=== PATIENT | female | born 1985 | race Caucasian/White ===

== ENCOUNTER 2019-03-24 14:19 | Outpatient (REF) | payer MEDICAID, SELFPAY ==
--- NOTE | 2019-03-24 13:30 | PAPFT_PTH ---
PATIENT: Randi Britt LOC: [facility]#:[id number] AGE/SX: 33/F ROOM: RE03/24/[address]: Cammie Sandoval : 1985 BED: DIS: 03/24/2019 SPEC #: [id number] RECD: 03/25/19 12:58 STATUS: TARI REQ #: [id number] RAY: 03/24/19 13:[address]: Cammie Sandoval DEPT: [facility] Cytology RECD BY: Zonia Thompson ENTERED: 03/25/19 12:58 SP TYPE: PAPFT OTHR DR: Maribell Bonilla Tissues: 1 - CX/ENDOCX FOR PAP SMEARS Procedures: PAP THIN PREP/[facility] Screening HPV DNA PROBE Comments: [id number]
== END 2019-03-24 14:39 ==
LOC: NCHCN 14:19
PROVIDERS: PCP Family Medicine; Visit Provider Family Medicine
DX: Z12.4 Encounter for screening for malignant neoplasm of cervix (principal); Z11.51 Encounter for screening for human papillomavirus (HPV)
CPT/HCPCS: 88142; 87624

== ENCOUNTER 2020-04-20 22:49 | Outpatient (REF) | payer MEDICAID, SELFPAY | END 2020-04-20 23:09 | LOC: NCHCN 22:49 | PROVIDERS: PCP Family Medicine; Visit Provider Family Medicine | DX: N39.0 Urinary tract infection, site not specified (principal) | CPT/HCPCS: 87077; 87086 ==

== ENCOUNTER 2022-05-22 12:59 | Outpatient (REF) | payer MEDICAID, SELFPAY | END 2022-05-22 13:00 | disposition home or self-care (01) | LOC: NCHCN 12:59 | PROVIDERS: PCP Family Medicine; Visit Provider Family Medicine | DX: R30.0 Dysuria (principal) | CPT/HCPCS: 87086 ==

== ENCOUNTER 2023-01-31 18:36 | Outpatient (REF) | payer MEDICAID, SELFPAY ==
[2023-02-02 14:57] LABS: Chlamydia Result Negative (Negative); GC Result Negative (Negative)
== END 2023-01-31 18:37 | disposition home or self-care (01) ==
LOC: NCHCN 18:36
PROVIDERS: PCP Family Medicine; Visit Provider Internal Medicine
DX: R39.89 Other symptoms and signs involving the genitourinary system (principal); R82.79 Other abnormal findings on microbiological examination of urine; Z11.3 Encounter for screening for infections with a predominantly sexual mode of transmission
CPT/HCPCS: 87077; 87491; 87591; 87086; 87186

== ENCOUNTER 2024-07-16 16:53 | Outpatient (REF) | payer MEDICAID, SELFPAY ==
--- NOTE | 2024-07-16 16:00 | PAPFT_PTH ---
PATIENT: Randi Britt LOC: [facility]#:[id number] AGE/SX: 38/F ROOM: RE07/16/[address]: Cammie Sandoval : 1985 BED: DIS: 07/16/2024 SPEC #: [id number] RECD: 07/17/24 17:08 STATUS: TARI REQ #: [id number] RAY: 07/16/24 16:[address]: Cammie Sandoval DEPT: [facility] Cytology RECD BY: Zonia Thompson ENTERED: 07/17/24 17:09 SP TYPE: PAPFT OTHR DR: Maribell Bonilla Tissues: 1 - CX/ENDOCX FOR PAP SMEARS Procedures: PAP THIN PREP/[facility] Screening HPV DNA PROBE Comments: [id number] (HPV 16 & 18/45) (CHLAMYDIA/GC)
[2024-07-16 22:48] LABS: ALT 35 U/L (14-59); AST 30 U/L (15-37); Albumin 4.1 g/dL (3.4-5.0); Alkaline Phosphatase 70 U/L (46-116); Anion Gap 4.4 mmol/L (3-11); BUN 19 mg/dL (7-18); Bilirubin, Total 0.24 mg/dL (0.2-1.0); CO2 29.6 mmol/L (21.0-32.0); CREATININE 0.9 mg/dL (0.55-1.02); Calcium 9.1 mg/dL (8.5-10.1); Calculated LDL 84 mg/dL (<100); Chloride 106 mmol/L (98-107); Cholesterol 149 mg/dL (<200); Estimated GFR 84.97 (mL/min/1.73m2); Glucose 94 mg/dL (74-106); HDL Cholesterol 52 mg/dL (40-60); Potassium 4.1 mmol/L (3.5-5.1); Sodium 140 mmol/L (136-145); Total Protein 7.3 g/dL (6.4-8.2); Triglyceride 69 mg/dL (<150); Vitamin D 25 Total 16.4 ng/mL (30-100)
[2024-07-16 22:54] LABS: Hemoglobin A1C 5.7 % (<5.7)
[2024-07-20 13:03] LABS: Chlamydia Result Negative (Negative); GC Result Negative (Negative)
== END 2024-07-16 16:54 | disposition home or self-care (01) ==
LOC: NCHCN 16:53
PROVIDERS: PCP Family Medicine; Visit Provider Family Medicine
DX: Z12.4 Encounter for screening for malignant neoplasm of cervix (principal); Z11.3 Encounter for screening for infections with a predominantly sexual mode of transmission; Z00.00 Encounter for general adult medical examination without abnormal findings; N76.0 Acute vaginitis
CPT/HCPCS: 80053; 80061; 82306; 87491; 87591; 88142; 83036; 87624